=== PATIENT | female | born 1965 | race Caucasian/White ===

== ENCOUNTER 2017-02-18 10:49 | Day surgery (SDC) | payer OTHER ==
[2017-02-18] VITALS (15 sets, daily range): BP systolic 92–135; BP diastolic 48–62; PULSE 60–80; RESP 16–33; Ht 152.4 cm; Wt 61.8 kg
[~2017-02-18] VITALS: Ht 152.4 cm; Wt 61.8 kg
[~2017-02-18 10:49] MED LIST: DICL50TA11 PO; GLYCOPYRROLATE 1 MG INJ ONE; LIDOCAINE 2% (SDV) 5 ML INJ ONE; MONT5TAB16 PO
--- NOTE | 2017-02-18 11:38 | HPN ---
Date/Time of Note Date/Time of Note DATE: 02/18/17 TIME: 11:37 Interval H&P Admission Note Pt. seen H&P reviewed: No system changes SHARATH PAYNE DPM Feb 18, 2017 11:38
[2017-02-18] MEDS ORDERED: OMEP40CA6 PO (11:58)
[2017-02-18] MEDS ORDERED: LIDOCAINE 1% (STERILE-PAK) 30 ML INJ ONE (13:10)
[2017-02-18] MEDS ORDERED: BUPIVACAINE 0.5% (SDV) 30 ML INJ ONE (13:10)
[2017-02-18] MEDS ORDERED: ROCURONIUM 50 MG INJ ONE (13:22)
[2017-02-18] MEDS ORDERED: CEFAZOLIN 1 GM INJ ONE (13:22)
[2017-02-18] MEDS ORDERED: NEOSTIGMINE 3 MG/3 ML SYRINGE ONE (13:22)
[2017-02-18] MEDS ORDERED: FENTAnyl 50 MCG/ML VIAL ONE ×2 (13:22→14:14)
[2017-02-18] MEDS ORDERED: PROPOFOL 20 ML ONE (13:22)
[2017-02-18] MEDS ORDERED: MIDAZOLAM 1 MG/ML 2 ML INJ ONE (13:22)
[2017-02-18] MEDS ORDERED: ONDANSETRON 4 MG INJ ONE (13:22)
[2017-02-18] MEDS ORDERED: DEXAMETHASONE 4 MG/ML 1 ML INJ ONE (13:23)
[2017-02-18] MEDS ORDERED: FENTAnyl 50 MCG/ML VIAL IV PRN ×3 (14:00)
[2017-02-18] MEDS ORDERED: DIPHENHYDRAMINE 50 MG INJ IV PRN (14:00)
[2017-02-18] MEDS ORDERED: hydrALAzine 20 MG INJ IV PRN (14:00)
[2017-02-18] MEDS ORDERED: TRIMETHOBENZAMIDE 100 MG/ML VIAL IM PRN (14:00)
[2017-02-18] MEDS ORDERED: MIDAZOLAM 1 MG/ML 2 ML INJ IV PRN (14:00)
[2017-02-18] MEDS ORDERED: HYDROmorphONE (0.2 MG/ML) 10ML SYG IV PRN ×3 (14:00)
[2017-02-18] MEDS ORDERED: ONDANSETRON 4 MG INJ IV PRN (14:00)
[2017-02-18] MEDS ORDERED: EPHEDrine SULFATE 50 MG/5 ML SYG IV PRN (14:00)
[2017-02-18] MEDS ORDERED: LABETALOL HCL 20MG INJ IV PRN (14:00)
[2017-02-18] MEDS ORDERED: MEPERIDINE 25 MG INJ IV PRN (14:00)
[2017-02-18] MEDS ORDERED: KETOROLAC 30 MG INJ ONE (14:01)
[2017-02-18] MEDS ORDERED: hydrALAzine 20 MG INJ ONE (14:15)
[2017-02-18] MEDS ORDERED: POVIDONE IODINE 10% 28.4 GM OINT ONE (14:18)
--- NOTE | 2017-02-18 15:14 | PREOPHP ---
DATE OF ADMISSION: 02/18/2017 HISTORY OF PRESENT ILLNESS: Patient is being admitted to the hospital for elective foot surgery. Pa lliative treatment unsuccessful. Patient has been explained the surgery, complications and alternat see, and has elected to have elective foot surgery. The patient is having severe pain on the bunio n on the left foot. ALLERGIES: PATIENT DENIES ANY. MEDICATIONS: For stomach, arthritis and pain. REVIEW OF SYSTEMS: Negative heart, lung, liver, kidney, thyroid. Negative diabetes. SOCIAL HISTORY: Negative smoke. Alcohol occasionally. See any other pertinent history and upper extremity physical examination by Dr. Pollock. PHYSICAL EXAMINATION: LOWER EXTREMITY: Shows DP and PT equal and regular. NEUROLOGICAL: Negative for pathology. DERMATOLOGICAL: Negative for pathology. MUSCULOSKELETAL: Shows hallux abductovalgus with bunion formation, left foot. FINAL DIAGNOSIS: Hallux abductovalgus with bunion, left foot. Dictated By: SHARATH BARRAGAN/SUE Conf#: [id number] DID#: [id number]
--- NOTE | 2017-02-18 15:26 | OPR ---
DATE OF OPERATION: 02/18/2017 PREOPERATIVE DIAGNOSIS: Hallux abductovalgus with bunion deformity, left foot. POSTOPERATIVE DIAGNOSIS: Hallux abductovalgus with bunion deformity, left foot. PROCEDURES: Osteotomy and bunionectomy with fixation first metatarsal left foot, Valdo osteotomy wit h fixation, proximal phalanx hallux, left foot, and application of EpiFix. SURGEON: Sharath Salinas DPM DESCRIPTION OF PROCEDURE: The patient was brought to the surgical suite, placed in the supine posit ion. Patient was under general anesthesia with cardiac monitoring, pneumatic cuff at mid thigh, and sterile prep and drape. The findings were consistent with the pre- and postoperative diagnosis. T he first incision, dorsal medial longitudinal incision over the first metatarsophalangeal joint usin g sharp and blunt dissection, the incision was carried deep. The Bovie was used as necessary. A lo ngitudinal capsulotomy was made, and the head of the first metatarsal freed of its attachments. The medial eminence was then resected and then a horizontal V osteotomy with the apex distal and the ba se proximal centered at the head of the first metatarsal was made through and through from medial to lateral. The head was then moved laterally, impacted upon the remainder of the shaft. The shaft o verhang was then resected and the area of the K-wire was placed across the osteotomy site and measur ed, and the measurement was 16 with a 2.5 mm headless screw was then placed over the K-wire and scre wed into place. The K-wire was removed, the osteotomy site was held firmly, and attention was now t urned to the base of the proximal phalanx which was freed of its attachment and the proximal phalanx at the shaft and an Valdo osteotomy with the apex lateral and the base medial, approximately 2.5 to 3 mm at its widest aspect was made and then the distal aspect was impacted upon the base, and an 8 x 8 x 8 staple was then placed across the osteotomy site and that was held in place. The area was th en cleansed, and the EpiFix was then placed on the medial aspect of the first metatarsal, and the 3- 0 Vicryl was used to coaptate the subcutaneous tissue, and the skin was coapted using 5-0 nylon. Th e area incision was injected with 0.5% Marcaine to prolong anesthesia, and a dressing of 1/2-inch St elmira-Strips, Betadine ointment, 4x4's impregnated with Betadine solution and Naveed with an outer laye r of Coban made into a semi-compressive dressing. The patient tolerated surgery and was returned to recovery room in satisfactory condition. There was minimum blood loss, and no complications. Dictated By: SHARATH BARRAGAN/SUE Conf#: [id number] DID#: [id number]
== END 2017-02-18 17:00 | disposition home or self-care (01) ==
LOC: SDS 10:49
PROVIDERS: ATTEND Podiatrist
DX: M20.12 Hallux valgus (acquired), left foot (principal); M21.612 Bunion of left foot; I10 Essential (primary) hypertension
CPT/HCPCS: 28298; 84703; 88304; 88311; C1713; J0360; J0690; J1100; J1885; J2250; J2405; J2710; J3010; Q4131; Z7512; Z7610

== ENCOUNTER 2017-09-09 11:31 | Day surgery (SDC) | payer OTHER ==
[2017-09-09] VITALS (17 sets, daily range): BP systolic 114–158; BP diastolic 76–95; PULSE 66–91; RESP 11–27; Ht 152.4 cm; Wt 62.9 kg
[~2017-09-09] VITALS: Ht 152.4 cm; Wt 62.9 kg
[~2017-09-09 11:31] MED LIST changes: +CEFAZOLIN 1 GM INJ ONE; -GLYCOPYRROLATE 1 MG INJ ONE; -LIDOCAINE 2% (SDV) 5 ML INJ ONE; -MONT5TAB16 PO; +OMEP40CA6 PO
[2017-09-09] MEDS ORDERED: LORA-186 PO (12:21)
[2017-09-09] MEDS ORDERED: LIDOCAINE 1% (STERILE-PAK) 30 ML INJ ONE (13:08)
[2017-09-09] MEDS ORDERED: BUPIVACAINE 0.5% (SDV) 30 ML INJ ONE (13:08)
[2017-09-09] MEDS ORDERED: POVIDONE IODINE 10% 28.4 GM OINT ONE (13:09)
[2017-09-09] MEDS ORDERED: DEXAMETHASONE 4 MG/ML 1 ML INJ ONE ×2 (13:09→13:57)
--- NOTE | 2017-09-09 13:18 | HPN ---
Date/Time of Note Date/Time of Note DATE: 09/09/17 TIME: 13:18 Interval H&P Admission Note Pt. seen H&P reviewed: No system changes SHARATH PAYNE DPM Sep 09, 2017 13:18
[2017-09-09] MEDS ORDERED: FENTAnyl 50 MCG/ML VIAL ONE (13:34)
[2017-09-09] MEDS ORDERED: MIDAZOLAM 1 MG/ML 2 ML INJ ONE (13:34)
[2017-09-09] MEDS ORDERED: LIDOCAINE 2% (SDV) 5 ML INJ ONE (13:34)
[2017-09-09] MEDS ORDERED: PROPOFOL 20 ML ONE (13:34)
[2017-09-09] MEDS ORDERED: FAMOTIDINE 20 MG INJ ONE (13:57)
[2017-09-09] MEDS ORDERED: ONDANSETRON 4 MG INJ ONE (13:57)
[2017-09-09] MEDS ORDERED: DIPHENHYDRAMINE 50 MG INJ IV PRN (14:30)
[2017-09-09] MEDS ORDERED: OXYCODONE/ACETAMINOPHEN (5/325) TAB PO PRN (14:30)
[2017-09-09] MEDS ORDERED: ONDANSETRON 4 MG INJ IV PRN (14:30)
[2017-09-09] MEDS ORDERED: HYDROmorphONE (0.2 MG/ML) 10ML SYG IV PRN ×3 (14:30)
[2017-09-09] MEDS ORDERED: PROCHLORPERAZINE 10 MG INJ IV PRN (14:30)
[2017-09-09] MEDS ORDERED: FENTAnyl 50 MCG/ML VIAL IV PRN (14:30)
[2017-09-09] MEDS ORDERED: MEPERIDINE 25 MG INJ IV PRN (14:30)
--- NOTE | 2017-09-09 14:55 | SIPON ---
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
--- NOTE | 2017-09-09 16:44 | PREOPHP ---
DATE OF ADMISSION: 09/09/2017 HISTORY OF PRESENT ILLNESS: The patient is being admitted to the hospital for elective foot surgery. Palliative treatment unsuccessful. The patient has been explained surgery, complications, alternatives, and elected to have elective foot surgery. Patient has pain in her right bunion. ALLERGIES: PATIENT DENIES ANY. MEDICATIONS: Medicine for her stomach, arthritis and pain. REVIEW OF SYSTEMS: Negative for heart, lung, liver, kidney, thyroid. Negative for diabetes. Negative for smoking and occasionally alcohol. See any other pertinent history and lower extremity physical by Dr. Dean. PHYSICAL EXAMINATION: Lower extremity physical exam shows the DP and PT equal and regular. Neurological negative for pathology. Dermatological negative for pathology. Musculoskeletal and x-ray findings show a hallux abductovalgus with bunion on the right foot. FINAL DIAGNOSIS: Hallux abductovalgus with bunion, right foot. Dictated By: Baron Salinas DPM /jennifer/claudia /Document#: [id number]
--- NOTE | 2017-09-09 20:04 | OPR ---
DATE OF OPERATION: 09/09/2017 PREOPERATIVE DIAGNOSIS: Hallux abducto valgus with bunion on the right foot. POSTOPERATIVE DIAGNOSIS: Hallux abducto valgus with bunion on the right foot. OPERATION PERFORMED: Right osteotomy and bunionectomy with fixation 1st metatarsal and Valdo osteotomy with fixation proximal phalanx on the hallux with EpiFix application. SURGEON: Baron Salinas DPM OPERATIVE PROCEDURE: The patient was brought to the surgical suite and placed in the supine position. The patient had a sterile prep and drape, a pneumatic cuff at the [facility], and patient with surgery was consistent with the pre and postop diagnosis. The 1st incision was a dorsal medial longitudinal incision over the 1st metatarsophalangeal joint. Using sharp and blunt dissection incision was carried deep. The Bovie was used as necessary. A longitudinal capsulotomy was made and the head of the 1st metatarsal was freed of its attachment dorsally and medially, and the lateral aspect of the base of the proximal phalanx was freed and remodeled, then the rest of the proximal phalanx was also freed of its attachment around the shaft. The 1st cut was a medial eminence and it was resected, and then a horizontal V osteotomy was made with the apex distal and the base proximal at the 1st metatarsal. The head of the capital fragment was moved laterally and impacted upon the shaft. The overhang of the shaft was removed. The area was stabilized with a K-wire and then a screw fixation was measured and screwed into place. It was a [employer] headless screw, 2.5 by 14 mm. Then the proximal phalanx was freed of its attachment and the Valdo osteotomy was made with the base medial in the apex going lateral. The widest part was 2.5 mm and then the distal half was impacted upon the base, and an 8 by 8 staple from [employer] was used to hold this in place. The area was cleansed and then EpiFix was applied to the 1st metatarsal medial aspect, and the area was coaptated using 3-0 Vicryl with the skin being coapted using 5-0 nylon. The area was then injected with 0.5 percent Marcaine and the area was dressed using half inch Steri-Strips, Betadine ointment, 4 by 4s impregnated with Betadine solution and Naveed with outer layer Coban made into a semicompressive dressing. The patient tolerated surgery well and was returned to recovery room in satisfactory condition. Dictated By: Baron Salinas DPM /jennifer/soila /Document#: [id number]
== END 2017-09-09 16:49 | disposition home or self-care (01) ==
LOC: SDS 11:31
PROVIDERS: ATTEND Podiatrist
DX: M20.11 Hallux valgus (acquired), right foot (principal); M21.611 Bunion of right foot; I10 Essential (primary) hypertension
CPT/HCPCS: 28298; 88304; 88311; J0690; J1100; J1170; J2250; J2405; J3010; Z7512; Z7610